=== PATIENT | female | born 1955 | race Caucasian/White ===

== ENCOUNTER 2017-10-27 12:42 | Day surgery (SDC) | payer BC ==
[2017-10-24 09:34] LABS: BASOPHILS # (AUTO) 0.02 x10^3/uL (0-0.1); BASOPHILS % (AUTO) 0 % (0-1); EOSINOPHILS # (AUTO) 0.08 x10^3/uL (0-0.4); EOSINOPHILS % (AUTO) 2 % (1-7); LYMPHOCYTES # (AUTO) 1.67 x10^3/uL (1-3.4); LYMPHOCYTES % (AUTO) 31 % (22-44); MD NO; MEAN CORPUSCULAR HEMOGLOBIN 30.8 pg (27.0-34.8); MEAN CORPUSCULAR HGB CONC 34.5 g/dL (32.4-35.8); MEAN CORPUSCULAR VOLUME 89.5 fL (80-100); MEAN PLATELET VOLUME 8.1 fL (7.4-10.4); MONOCYTES # (AUTO) 0.48 x10^3/uL (0.2-0.8); MONOCYTES % (AUTO) 9 % (2-9); NEUTROPHILS # (AUTO) 3.16 x10^3/uL (1.8-6.8); NEUTROPHILS % (AUTO) 58 % (42-75); PLATELET COUNT 264 x10^3/uL (130-400); RED BLOOD COUNT 4.54 x10^6/uL (3.82-5.3); RED CELL DISTRIBUTION WIDTH 13.9 % (9.6-15.2)
[2017-10-24 09:50] LABS: MICROSCOPIC NOT IND
[2017-10-24 09:56] LABS: CULTURE INDICATED? NO
[~2017-10-27] VITALS: Ht 162.6 cm; Wt 60.0 kg
[~2017-10-27 12:42] MED LIST: ASCO500T8 PO; ASPI-496 PO; CELE200C PO; FISH OIL PO; LACT70CA PO; MULT-516 PO; PROPOFOL 10 MG/ML, 20ML ONE; VITA150T PO
[2017-10-27 13:30] VITALS: BP 166/78
[2017-10-27] MEDS ORDERED: LACTATED RINGERS 1,000 ML IV SCH (13:34)
[2017-10-27] MEDS ORDERED: LIDOCAINE-MPF 1%, 2ML INFIL ONE (14:00)
[2017-10-27] MEDS ORDERED: MIDAZOLAM 1 MG/ML, 2ML ONE (14:44)
[2017-10-27] MEDS ORDERED: SODIUM CHLORIDE 0.9% 100 ML ONE (15:25)
[2017-10-27] MEDS ORDERED: EPINEPHRINE 1 MG/ML, 1ML ONE (15:25)
[2017-10-27] MEDS ORDERED: KETOROLAC 60 MG/2 ML ONE (15:25)
[2017-10-27] MEDS ORDERED: ROPIvacaine/PF 0.2%, 20 ML ONE ×2 (15:29→15:31)
[2017-10-27] MEDS ORDERED: ACETAMINOPHEN 325 MG TABLET PO PRN ×2 (15:30→16:30)
[2017-10-27] MEDS ORDERED: OXYcodone/APAP 5/325MG TABLET PO PRN (15:30)
[2017-10-27] MEDS ORDERED: ONDANSETRON 2MG/ML, 2ML IVPush PRN (15:30)
[2017-10-27] MEDS ORDERED: HYDROmorphone 1 MG/ML, 1ML IM PRN (15:30)
[2017-10-27] MEDS ORDERED: KETOROLAC 30 MG/1 ML IVPush STA (16:04)
[2017-10-27] MEDS ORDERED: FENTANYL PF 100 MCG/2ML ONE (16:10)
[2017-10-27] MEDS ORDERED: KETOROLAC 30 MG/1 ML ONE (16:10)
[2017-10-27] MEDS ORDERED: ACETAMINOPHEN 650 MG/20.3 ML UDC ONE (16:10)
[2017-10-27] MEDS ORDERED: OXYcodone 5 MG/5 ML ORAL.SOL UDC ONE (16:11)
[2017-10-27] MEDS: FENTANYL PF 100 MCG/2ML IV PRN ×4 (16:15→16:38)
[2017-10-27] MEDS ORDERED: OXYcodone 5 MG/5 ML ORAL.SOL UDC PO PRN (16:30)
== END 2017-10-27 18:20 ==
LOC: OUT 12:42
PROVIDERS: ATTEND Orthopaedic Surgery
DX: M24.662 Ankylosis, left knee (principal); Z96.652 Presence of left artificial knee joint
CPT/HCPCS: 27570; 36415; 81003; 85025; 93005; J0171; J1885; J2250; J2704; J2795; J3010; J3490; J7120